=== PATIENT | female | born 1985 | race Caucasian/White ===

== ENCOUNTER → 2017-12-30 | Outpatient (CLI) | payer OTHER ==
[~2017-12-30] MED LIST: ASPI1TAB17 PO; CIPR-17 PO; HYDR-91 PO; IBUP800T26 PO; INSU100V6 SQ; MTF500T PO; PHEN100T26 PO; PRM25T PO
--- NOTE | 2017-12-30 17:15 | Diagnostic Imaging Report ---
INDICATION: Secondary amenorrhea. EXAMINATION: Pelvic ultrasound. FINDINGS: The previous pelvic ultrasound exam performed on 09/03/2015 failed to show any sign of an acute pelvic abnormality. The endometrium measured 3 mm at that time. On this exam, endometrium measures only 1 mm. This finding is nonspecific, however. The uterus, itself, is nongravid and not enlarged, measuring 5.2 x 4.0 x 3.4 cm. There is still no focal mass involving the uterus to suggest a fibroid. Both ovaries were identified. There is good blood flow to each ovary and there is no sign of torsion. Each ovary contains a few subcentimeter follicles. There is no solid pelvic mass or free fluid collection noted. IMPRESSION: 1. There is no evidence for an acute pelvic abnormality. 2. The endometrial lining is thinned but this finding is nonspecific. Dictated by: Dictated on workstation # [id number]
== END ==
LOC: RAD 12:50
PROVIDERS: ATTEND Obstetrics & Gynecology
DX: N91.1 Secondary amenorrhea (principal)
CPT/HCPCS: 76830; 76856

== ENCOUNTER → 2018-01-18 | Outpatient (CLI) | payer OTHER ==
[~2018-01-18] MED LIST changes: +GADOBUTROL 15 MMOL/15 ML (GADAVIST) VIAL IV ONE
[2018-01-18 17:53] LABS: ALANINE AMINOTRANSFERASE 77 U/L (0-55); ALBUMIN 4.5 GM/DL (3.2-4.5); ALKALINE PHOSPHATASE 97 U/L (40-136); BILIRUBIN,TOTAL 1.3 MG/DL (0.1-1.0); BUN/CREATININE RATIO 16; CALCIUM 10.6 MG/DL (8.5-10.1); CARBON DIOXIDE 27 MMOL/L (21-32); CHLORIDE 99 MMOL/L (98-107); CREATININE SERUM 0.89 MG/DL (0.60-1.30); GFR ESTIMATED > 60; GLUCOSE 247 MG/DL (70-105); POTASSIUM 4.4 MMOL/L (3.6-5.0); SODIUM 136 MMOL/L (135-145); TOTAL PROTEIN 8.5 GM/DL (6.4-8.2)
--- NOTE | 2018-01-18 18:43 | Diagnostic Imaging Report ---
PROCEDURE: MR brain and sella with and without contrast. TECHNIQUE: Multiplanar, multisequence MR imaging of the brain was performed with and without contrast. Dedicated dynamic imaging of the sella was performed. INDICATION: Amenorrhea. COMPARISON: None. FINDINGS: The ventricles and sulci are within normal limits. The normal expected flow-voids within the carotid siphons are seen. No diffusion restriction is identified. No acute intra-axial or extra-axial hemorrhage is identified. The corpus callosum is unremarkable. No abnormal enhancement following contrast administration is seen. Thin slice dynamic imaging through the sella turcica was performed. The infundibulum is midline. The pituitary gland appears to be normal in size. No hypointense mass within the pituitary is seen to suggest pituitary microadenoma. IMPRESSION: Unremarkable MRI of the brain and pituitary gland. Dictated by: Dictated on workstation # [id number]
== END ==
LOC: RAD 17:09
PROVIDERS: ATTEND Obstetrics & Gynecology
DX: E23.0 Hypopituitarism (principal); E11.9 Type 2 diabetes mellitus without complications; N91.2 Amenorrhea, unspecified
CPT/HCPCS: 36415; 70553; 80053

== ENCOUNTER 2019-07-29 12:50 | Emergency (ER) | payer BC, OTHER ==
[~2019-07-29] VITALS: Ht 182.8 cm; Wt 109.1 kg
[~2019-07-29 12:50] MED LIST changes: -GADOBUTROL 15 MMOL/15 ML (GADAVIST) VIAL IV ONE
[2019-07-29] MEDS ORDERED: AUGMENTIN 875 MG TAB (AMOXICILLIN/CLAVULANATE) PO STA (13:11)
[2019-07-29] MEDS ORDERED: TETANUS & DIPHTHERIA TOX,ADULT 0.5 ML (TENIVAC) IM ONE (13:15)
--- NOTE | 2019-07-29 13:18 | ED General ---
General Stated Complaint: DOG BITE - R LEG Source of Information: Patient Exam Limitations: No Limitations History of Present Illness Date Seen by Provider: July 29, 2019 Time Seen by Provider: 13:06 Initial Comments Here with report of dogbite to the right posterior upper leg in the area of the mid thigh. This was not her dog. She knows where the dog lives and police were contacted. They are evaluating if the dog has rabies vaccination. She is unsure of her tetanus status. Has puncture wound and abrasions as well as bruising to the area of concern. Denies other injuries or concerns. She was [place] the [address] on [facility] [employer] [facility] when the dog started chasing her. She started running and the dog bit her in the posterior leg on the right. Timing/Duration: 1 Hour Severity: Mild Associated Systoms: No Fever/Chills, No Weakness Allergies and Home Medications Allergies Coded Allergies: No Known Drug Allergies (Unverified , 04/28/10) Home Medications Amoxicillin/Potassium Clav 1 Each Tablet, 1 EACH PO BID Prescribed by: CJ QUEEN on 07/29/19 1320 Ibuprofen 800 Mg Tablet, 800 MG PO q8h PRN for PAIN Prescribed by: BARBARA GRAY on 11/02/13 0611 Insulin Glargine,Hum.rec.anlog 100 Unit/1 Ml Vial, 20 UNITS SQ HS Prescribed by: FARHAD MTZ on 03/02/13 1526 Metformin Hcl 500 Mg Tablet, 500 MG PO BID@07,17 Prescribed by: FARHAD MTZ on 03/02/13 1526 Promethazine Hcl 25 Mg Tab, 1 TAB PO QID PRN for NAUSEA/VOMITING Prescribed by: BARBARA GRAY on 11/02/13 0611 Patient Home Medication List Home Medication List Reviewed: Yes Review of Systems Review of Systems Constitutional: see HPI; No chills, No fever Respiratory: no symptoms reported Cardiovascular: no symptoms reported Musculoskeletal: No joint pain; muscle pain Skin: see HPI, change in color, lesions Psychiatric/Neurological: No Symptoms Reported Past Ampjska-Slpkrq-Uhugva Hx Past Med/Social Hx: Reviewed Nursing Past Med/Soc Hx Patient Social History Alcohol Use: Occasionally Uses Recreational Drug Use: No Smoking Status: Never a Smoker Recent Foreign Travel: No Contact w/Someone Who Travel: No Immunizations Up To Date Date of Pneumonia Vaccine: Mar 02, 2013 Date of Influenza Vaccine: Mar 02, 2013 Past Medical History Surgeries: No Respiratory: No Cardiac: No Neurological: Yes Headaches /Migraines Reproductive Disorders: No Sexually Transmitted Disease: No Gastrointestinal: No Musculoskeletal: No Endocrine: Yes Diabetes, Insulin dep Family Medical History Reviewed Nursing Family Hx Family history: Diabetes mellitus 03 FATHER 03 MOTHER 09 BROTHER 09 BROTHER 09 SISTER No Family History of: Abdominal aortic aneurysm Evans's disease Alcoholism Aphasia Cancer Cancer of colon Cataract Chest pain Congenital heart disease Congestive heart failure Cystic fibrosis Dementia Dysphagia Family history: Allergy Family history: Alzheimer's disease Family history: Arthritis Family history: Asthma Family history: Breast disease Family history: Cardiovascular disease Family history: Coronary thrombosis Family history: Gastrointestinal disease Family history: Glaucoma Family history: Hypertension Family history: Osteoporosis Family history: Thyroid disorder Headache Hearing loss Heart disease Hereditary disease History of - anemia History of - disorder History of - respiratory disease History of drug abuse Human immunodeficiency virus (HIV) seropositivity Hypercholesterolemia Infertile Kidney disease Malignant neoplasm of lung Myocardial infarction Parkinson's disease Prostate cancer Psychotic disorder Seizure disorder Stroke Tuberculosis Visual impairment Physical Exam Vital Signs Vital Signs - First Documented 07/29/19 13:05 Temp 36.7 Pulse 76 Resp 16 B/P (MAP) 141/95 (110) O2 Delivery Room Air Capillary Refill : Height, Weight, BMI Height: 5'11" Weight: 260lbs. oz. 117.420646we; BMI Method:Stated General Appearance: No Apparent Distress, WD/WN Respiratory: Lungs Clear, Normal Breath Sounds Cardiovascular: Regular Rate, Rhythm, No Murmur Extremity: Normal Range of Motion, Other (lateral posterior aspect of right middle thigh with 2) approximately areas of abrasion and bruising that encompass overall 10 x 10 cm area. Puncture wound is one half by 1.5 cm and is in the posterior superior aspect. Bleeding controlled.) Neurologic/Psychiatric: Alert, Oriented x3 Skin: Warm/Dry, Erythema, Other (see lesion description above) Progress/Results/Core Measures Suspected Sepsis SIRS Temperature: Pulse: Respiratory Rate: Blood Pressure / Mean: Results/Orders My Orders Orders - CJ QUEEN MD Amoxicillin/Clavulanate Tablet (Augmenti (07/29/19 13:11) Tetanus/Diphtheria Inj (Adult) (Tenivac (07/29/19 13:15) Medications Given in ED Current Medications Medications Dose Ordered Sig/Nadja Route Start Time Stop Time Status Last Admin Dose Admin Tetanus/ Diphtheria Toxoids 0.5 ml ONCE ONCE IM 07/29/19 13:15 07/29/19 13:16 DC 07/29/19 13:32 0.5 ML Vital Signs/I&O 07/29/19 13:05 Temp 36.7 Pulse 76 Resp 16 B/P (MAP) 141/95 (110) O2 Delivery Room Air Capillary Refill : Progress Note : Progress Note Seen and evaluated. Tetanus updated. Augmentin 875 mg by mouth ordered. We are evaluating for rabies vaccination status of dog. Law enforcement have been contacted. Wound cleaned and dressed by nursing with antibiotic and bandage. 1351: We have made contact with [facility]. They have found the dog. Rabies vaccine was outdated as of January 19, 2019. They are able to monitor the dog daily for the next 10 days and it is otherwise healthy c urrently. We will forego prophylaxis at this point per current guidelines and only initiate if animal shows signs of rabies. This was discussed with the patient. Discharged home with return precautions. Patient verbalize understanding of instructions and agreement with plan. Departure Impression Primary Impression: Dog bite of thigh Qualified Codes: S71.151A - Open bite, right thigh, initial encounter; W54.0XXA - Bitten by dog, initial encounter Disposition: 01 HOME, SELF-CARE Condition: Stable Departure-Patient Inst. Decision time for Depature: 13:18 Referrals: [facility] (PCP/Family) Primary Care Physician Patient Instructions: Animal Bites (DC) Add. Discharge Instructions: Take medication as prescribed. Use antibiotic ointment and dressing over wound changing once or twice daily over the next few days and then as needed. You may use ice packs over area of bruises to decrease swelling and pain. Follow-up with your Dr. in a few days for recheck. Return for worse pain, swelling, red streaks up the leg, foul-smelling drainage or other concerns as needed. You may take ibuprofen 600 mg every 8 hours as needed for pain. You may also take Tylenol/a cetaminophen 1000 mg every 8 hours as needed for pain. Scripts Amoxicillin/Potassium Clav (Augmentin 875-125 Tablet) 1 Each Tablet 1 EACH PO BID, #13 TAB 0 Refills Prov: CJ QUEEN MD 07/29/19 CJ QUEEN MD July 29, 2019 13:18
[2019-07-29] MEDS ORDERED: AMOX-358 PO (13:20)
--- NOTE | 2019-07-29 13:42 | NUR ---
[place] PD called at this time RE status of dog. They are not aware of any reports of a dog bite that they are investigating, but did have a report of a loose dog at [facility]. He will call back if that dog matches description of dog that bit the pt.
[2019-07-29 14:09] VITALS: BP 141/95
== END 2019-07-29 14:09 | disposition home or self-care (01) ==
LOC: EDUNIT# 12:50 → ER 12:51
DX: S71.151A Open bite, right thigh, initial encounter (principal); E11.9 Type 2 diabetes mellitus without complications; G43.909 Migraine, unspecified, not intractable, without status migrainosus; Z79.4 Long term (current) use of insulin; Z23 Encounter for immunization; W54.0XXA Bitten by dog, initial encounter
CPT/HCPCS: 90714

== ENCOUNTER 2020-09-13 16:10 | Emergency (ER) | payer BC ==
[~2020-09-13] VITALS: Ht 185 cm; Wt 117.0 kg
[~2020-09-13 16:10] MED LIST changes: +AMOX-358 PO
[2020-09-13] MEDS ORDERED: diphenhydrAMINE 50 MG/ML INJ (BENADRYL) IM ONE (17:00)
[2020-09-13] MEDS ORDERED: PROCHLORPERAZINE 10 MG/2ML INJ (COMPAZINE) IM ONE (17:00)
[2020-09-13] MEDS ORDERED: KETOROLAC 60 MG/2 ML VIAL IM ONE (17:00)
--- NOTE | 2020-09-13 17:32 | ED Headache ---
General Chief Complaint: Head/Cervical Problems Stated Complaint: MIGRAINE Nursing Triage Note: MIGRAINE SINCE WEDNESDAY. WOKE UP THIS AM WITHOUT A MIGRAINE BUT IT STARTED AGAIN WHILE SHE WAS AT WORK. DENIES TAKING ANY MEDS FOR IT TODAY. Nursing Sepsis Screen: No Definite Risk Source: patient Exam Limitations: no limitations (EMILY GARCIA APRN) History of Present Illness Date Seen by Provider: Sep 13, 2020 Time Seen by Provider: 16:20 Initial Comments To ER with a migraine since Wednesday. She has a long history of migraines and this is similar. This is bitemporal, frontal and midline posterior. This is typical of her previous migraines. It went away for a brief while but then came back earlier today. She has associated nausea and photophobia. She has not taken anything for it. Timing/Duration: other (72 hours) Severity/Quality: moderate, constant Location: temporal Prior Headaches/Recent Trauma: occasional headaches Modifying Factors: worse with exposure to light Associated Symptoms: nausea/vomiting (EMILY GARCIA APRN) Allergies and Home Medications Allergies Coded Allergies: No Known Drug Allergies (Unverified , 04/28/10) Home Medications Amoxicillin/Potassium Clav 1 Each Tablet, 1 EACH PO BID Prescribed by: CJ QUEEN on 07/29/19 1320 Ibuprofen 800 Mg Tablet, 800 MG PO q8h PRN for PAIN Prescribed by: BARBARA GRAY on 11/02/13 0611 Insulin Glargine,Hum.rec.anlog 100 Unit/1 Ml Vial, 20 UNITS SQ HS Prescribed by: FARHAD MTZ on 03/02/13 1526 Metformin Hcl 500 Mg Tablet, 500 MG PO BID@,17 Prescribed by: FARHAD MTZ on 03/02/13 1526 Promethazine Hcl 25 Mg Tab, 1 TAB PO QID PRN for NAUSEA/VOMITING Prescribed by: BARBARA GRAY on 11/02/13 0611 Patient Home Medication List Home Medication List Reviewed: Yes (EMILY GARCIA APRN) Review of Systems Review of Systems Constitutional: see HPI Eyes: No Symptoms Reported Ears, Nose, Mouth, Throat: no symptoms reported Respiratory: no symptoms reported Cardiovascular: no symptoms reported Genitourinary: no symptoms reported Musculoskeletal: no symptoms reported Skin: no symptoms reported Psychiatric/Neurological: No Symptoms Reported, Headache (EMILY GARCIA APRN) Past Ktrovzd-Cipulb-Englns Hx Patient Social History Alcohol Use: Occasionally Uses Smoking Status: Never a Smoker Recent Infectious Disease Expo: No (EMILY GARCIA APRN) Immunizations Up To Date Date of Pneumonia Vaccine: Mar 02, 2013 Date of Influenza Vaccine: Mar 02, 2013 (EMILY GARCIA APRN) Past Medical History Surgeries: No Respiratory: No Cardiac: No Neurological: Yes Headaches /Migraines Reproductive Disorders: No Sexually Transmitted Disease: No Gastrointestinal: No Musculoskeletal: No Endocrine: Yes Diabetes, Insulin dep Cancer: No Psychosocial: No Integumentary: No Blood Disorders: No (EMILY GARCIA APRN) Family Medical History Family history: Diabetes mellitus 03 FATHER 03 MOTHER 09 BROTHER 09 BROTHER 09 SISTER No Family History of: Abdominal aortic aneurysm Evans's disease Alcoholism Aphasia Cancer Cancer of colon Cataract Chest pain Congenital heart disease Congestive heart failure Cystic fibrosis Dementia Dysphagia Family history: Allergy Family history: Alzheimer's disease Family history: Arthritis Family history: Asthma Family history: Breast disease Family history: Cardiovascular disease Family history: Coronary thrombosis Family history: Gastrointestinal disease Family history: Glaucoma Family history: Hypertension Family history: Osteoporosis Family history: Thyroid disorder Headache Hearing loss Heart disease Hereditary disease History of - anemia History of - disorder History of - respiratory disease History of drug abuse Human immunodeficiency virus (HIV) seropositivity Hypercholesterolemia Infertile Kidney disease Malignant neoplasm of lung Myocardial infarction Parkinson's disease Prostate cancer Psychotic disorder Seizure disorder Stroke Tuberculosis Visual impairment Physical Exam Vital Signs Vital Signs - First Documented 09/13/20 16:20 Temp 36.0 Pulse 90 Resp 16 B/P (MAP) 125/82 (96) Pulse Ox 95 O2 Delivery Room Air (BARBARA MENDIOLA MD) Vital Signs Capillary Refill : Less Than 3 Seconds (EMILY GARCIA APRN) Height, Weight, BMI Height: 5'11" Weight: 260lbs. oz. 117.745684fo; 34.00 BMI Method:Stated General Appearance: WD/WN, no apparent distress HEENT: PERRL/EOMI, normal ENT inspection Neck: non-tender, full range of motion Respiratory: normal breath sounds, no respiratory distress, no accessory muscle use Gastrointestinal: normal bowel sounds, non tender Extremities: normal range of motion, non-tender Psychiatric: alert, oriented x 3 Crainal Nerves: normal hearing, normal speech, PERRL Skin: normal color, warm/dry (EMILY GARCIA APRN) Progress/Results/Core Measures Results/Orders Vital Signs/I&O 09/13/20 09/13/20 16:20 17:54 Temp 36.0 36.0 Pulse 90 99 Resp 16 16 B/P (MAP) 125/82 (96) 122/71 (96) Pulse Ox 95 97 O2 Delivery Room Air Room Air (BARBARA MENDIOLA MD) Blood Pressure Mean: 96 Departure Impression Primary Impression: Headache Disposition: 01 HOME, SELF-CARE Condition: Stable Departure-Patient Inst. Decision time for Depature: 17:36 (EMILY GARCIA APRN) Referrals: [facility] (PCP/Family) Primary Care Physician Patient Instructions: Headache, Adult (DC) ATTENDING PHYSICIAN NOTE: I was physically present as attending physician in the emergency department during the care of this patient, but I was not directly involved in the decision making or delivery of care for this patient. (BARBARA MENDIOLA MD) EMIYL GARCIA APRN Sep 13, 2020 17:32 BARBARA MENDIOLA MD Sep 14, 2020 06:38
[2020-09-13 17:54] VITALS: BP 122/71
== END 2020-09-13 17:54 | disposition home or self-care (01) ==
LOC: EDUNIT# 16:10 → ER 16:12
DX: R51.9 Headache, unspecified (principal); E11.9 Type 2 diabetes mellitus without complications
CPT/HCPCS: 99284

== ENCOUNTER 2021-02-11 09:05 | Emergency (ER) | payer BC ==
[2021-02-11 09:13] VITALS: BP 146/103
--- NOTE | 2021-02-11 09:36 | ED Neurological Problem ---
General Chief Complaint: Neurological Problems Stated Complaint: LEFT SIDE IS NUMB Source: patient Exam Limitations: no limitations History of Present Illness Date Seen by Provider: Feb 11, 2021 Time Seen by Provider: 09:12 Initial Comments This 36-year-old young lady presents to the emergency room with complaints of left facial numbness and weakness. She noticed symptoms yesterday that included some minor eye irritation and inability to close her eye fully. Today she woke with the more profound paralysis and numbness. On exam she has rather severe facial droop on the left and inability to close her left eye. 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 She reports having canker sores on her left upper lip about a week ago but does not recall any other acute illness. Symptoms extend to the upper neck and forehead but not beyond. Allergies and Home Medications Allergies Coded Allergies: No Known Drug Allergies (Unverified , 04/28/10) Patient Home Medication List Home Medication List Reviewed: Yes Amoxicillin/Potassium Clav (Augmentin 875-125 Tablet) 1 Each Tablet, 1 EACH PO BID Prescribed by: CJ QUEEN on 07/29/19 1320 Ibuprofen (Ibuprofen) 800 Mg Tablet, 800 MG PO q8h PRN for PAIN Prescribed by: BARBARA GRAY on 11/02/13 0611 Insulin Glargine,Hum.rec.anlog (Lantus 10 Ml Vial) 100 Unit/1 Ml Vial, 20 UNITS SQ HS Prescribed by: FARHAD MTZ on 03/02/13 1526 Metformin Hcl (Metformin 500 Mg) 500 Mg Tablet, 500 MG PO BID@07,17 Prescribed by: FARHAD MTZ on 03/02/13 1526 Prednisone (Prednisone) 20 Mg Tab, 6 MG PO DAILY Prescribed by: BARBARA GRAY on 02/11/21 0937 Promethazine Hcl (Phenergan Tab) 25 Mg Tab, 1 TAB PO QID PRN for NAUSEA/VOMITING Prescribed by: BARBARA GRAY on 11/02/13 0611 Valacyclovir HCl (Valacyclovir) 1,000 Mg Tablet, 1,000 MG PO TID Prescribed by: BARBARA GRAY on 02/11/21 0937 Review of Systems Review of Systems Constitutional: no symptoms reported Eyes: No Symptoms Reported Ears, Nose, Mouth, Throat: no symptoms reported Respiratory: no symptoms reported Cardiovascular: no symptoms reported Gastrointestinal: no symptoms reported Genitourinary: no symptoms reported Musculoskeletal: no symptoms reported Skin: no symptoms reported Psychiatric/Neurological: See HPI Endocrine: No Symptoms Reported Hematologic/Lymphatic: No Symptoms Reported Past Cmfhgof-Gydqyr-Bpjmqf Hx Patient Social History Tobacco Use?: No Use of E-Cig and/or Vaping dev: No Substance use?: No Alcohol Use?: Yes Alcohol Frequency: Once in a while Past Medical History Surgeries: No Respiratory: No Cardiac: No Neurological: Yes Headaches /Migraines Reproductive Disorders: No Sexually Transmitted Disease: No Gastrointestinal: No Musculoskeletal: No Endocrine: Yes Diabetes, Insulin dep Cancer: No Psychosocial: No Integumentary: No Blood Disorders: No Family Medical History Family history: Diabetes mellitus 03 FATHER 03 MOTHER 09 BROTHER 09 BROTHER 09 SISTER No Family History of: Abdominal aortic aneurysm Evans's disease Alcoholism Aphasia Cancer Cancer of colon Cataract Chest pain Congenital heart disease Congestive heart failure Cystic fibrosis Dementia Dysphagia Family history: Allergy Family history: Alzheimer's disease Family history: Arthritis Family history: Asthma Family history: Breast disease Family history: Cardiovascular disease Family history: Coronary thrombosis Family history: Gastrointestinal disease Family history: Glaucoma Family history: Hypertension Family history: Osteoporosis Family history: Thyroid disorder Headache Hearing loss Heart disease Hereditary disease History of - anemia History of - disorder History of - respiratory disease History of drug abuse Human immunodeficiency virus (HIV) seropositivity Hypercholesterolemia Infertile Kidney disease Malignant neoplasm of lung Myocardial infarction Parkinson's disease Prostate cancer Psychotic disorder Seizure disorder Stroke Tuberculosis Visual impairment Physical Exam Vital Signs Vital Signs - First Documented 02/11/21 09:13 Temp 36.7 Pulse 84 Resp 18 B/P (MAP) 146/103 (117) Pulse Ox 97 O2 Delivery Room Air Capillary Refill : Height, Weight, BMI Height: 5'11" Weight: 260lbs. oz. 117.677194ac; 34.00 BMI Method:Stated General Appearance: WD/WN, no apparent distress HEENT: PERRL/EOMI, TMs normal, pharynx normal, other (Left-sided facial droop, inability to close left eye, left facial numbness) Neck: normal inspection Respiratory: lungs clear, normal breath sounds, no respiratory distress Cardiovascular: regular rate, rhythm, no edema, no murmur Gastrointestinal: non tender, soft Extremities: normal inspection, no pedal edema Neurologic/Psychiatric: no motor/sensory deficits, alert, normal mood/affect, oriented x 3 Crainal Nerves: normal hearing, normal speech, PERRL, facial asymmetry, facial droop (Left), other (Decreased sensation of left face, inability to close the left eye, left forehead paralysis) Coordination/Gait: normal finger to nose (Normal [id number]-qedj), normal gait Progress/Results/Core Measures Results/Orders Vital Signs/I&O 02/11/21 09:13 Temp 36.7 Pulse 84 Resp 18 B/P (MAP) 146/103 (117) Pulse Ox 97 O2 Delivery Room Air Progress Progress Note : Progress Note 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 She is being started on high-dose steroids and valacyclovir. She does feel comfortable performing sliding scale insulin adjustments for hyperglycemia should she experience that with steroid use. We reviewed these instructions. See discharge instructions for further discussion. Departure Impression Primary Impression: Mondragon's palsy Disposition: 01 HOME, SELF-CARE Condition: Stable Departure-Patient Inst. Decision time for Depature: 09:30 Referrals: [facility] (PCP/Family) Primary Care Physician Patient Instructions: Mondragon's Palsy Add. Discharge Instructions: Start your medications immediately. You are being prescribed high-dose prednisone (steroids). This may cause sign ificant elevation in your blood sugars. I recommend that you check your blood sugars fasting in the morning and 2 hours after each meal. Use the following sliding scale to give your self correction doses when you check your blood sugar. Blood sugar 200-250, give additional 6 units of fast acting insulin Blood sugar 251-300, give additional 8 units of fast acting insulin Blood sugar 301-350, give additional 10 units of fast acting insulin Blood sugar 351-400, give additional 2 units of fast acting insulin Blood sugar greater than 400, call your doctor. Complete the entire course of your medications as prescribed. Call your doctors office today to schedule a follow-up appointment for sometime within the next week. Eat and drink very carefully because of the paralysis of the left side of your mouth. Be particularly careful of hot foods or liquids and chewing. It is very important to protect your eye since you cannot blink properly at this time. When outside you should be very careful of windy, domingo and o[place]ia conditions. It may be helpful to get a wraparound pair of sunglasses that can go over your regular glasses. Wearing a hat to protect your eyes from sun may also be helpful. It is also very important to moisturize your eye. You should use artificial te ars at least every 15 to 30 minutes. You may use a nighttime preparation that is more viscous to use before bed. As long as you are unable to close your eye, you should also tape your eye shut at night. Call with questions or concerns. Return to the ER if you have any worsening of symptoms. All discharge instructions reviewed with patient and/or family. Voiced understanding. Scripts Valacyclovir HCl (Valacyclovir) 1,000 Mg Tablet 1000 MG PO TID, #21 TAB Prov: BARBARA MENDIOLA MD 02/11/21 Prednisone (Prednisone) 20 Mg Tab 6 MG PO DAILY, #21 TAB 0 Refills Prov: BARBARA MENDIOLA MD 02/11/21 Copy Copies To 1: OK SUTTON JOSHUA T MD Feb 11, 2021 09:36
[2021-02-11] MEDS ORDERED: VALA10007 PO (09:37)
[2021-02-11] MEDS ORDERED: PRD20T PO (09:37)
== END 2021-02-11 09:50 | disposition home or self-care (01) ==
LOC: EDUNIT# 09:05 → ER 09:09
DX: G51.0 Bell's palsy (principal); E11.9 Type 2 diabetes mellitus without complications; Z79.4 Long term (current) use of insulin
CPT/HCPCS: 99281

== ENCOUNTER 2022-07-22 09:11 | Emergency (ER) | payer OTHER ==
[~2022-07-22] VITALS: Ht 182 cm; Wt 117.0 kg
[~2022-07-22 09:11] MED LIST changes: +PRD20T PO; +VALA10007 PO
--- NOTE | 2022-07-22 11:08 | ED Lower Extremity ---
General Stated Complaint: LT ANKLE/LEG PAIN Source: patient Exam Limitations: no limitations (NGHIA GAINES) History of Present Illness Date Seen by Provider: July 22, 2022 Time Seen by Provider: 11:06 Initial Comments Patient is a 37-year-old female who presents ED with left leg pain. Leg pain over the past 2 weeks. Started in the heels. Pain is described as dull and achy. Yesterday started having radiating pain up into the left hip. She noted some engorgement of her superficial veins in her left leg. She denies of any bruising or, redness or trauma. States pain is seems to be worse when she starts walking. She does get some relief after longer period of walking. She denies of any cool extremity. Has been taken Tylenol and ibuprofen without much improvement. No history of DVT, recent travels or surgeries. She does have a history of type 2 diabetes currently on insulin. She states her last A1c 2 weeks ago was 9. She denies fever, chest pain, cough, shortness of breath, headache or dizziness. (NGHIA GAINES) Allergies and Home Medications Allergies Coded Allergies: No Known Drug Allergies (Unverified , 04/28/10) Patient Home Medication List Home Medication List Reviewed: Yes (NGHIA GAINES) Amoxicillin/Potassium Clav (Augmentin 875-125 Tablet) 1 Each Tablet, 1 EACH PO BID Prescribed by: CJ QUEEN on 07/29/19 1320 Hydrocodone/Acetaminophen (Hydrocodone-Acetamin 5-325 mg) 5 Mg-325 Mg Tablet, 1 TAB PO Q4H PRN for PAIN-MODERATE (5-7) Prescribed by: ARUN LANIER on 07/22/22 1238 Ibuprofen (Ibuprofen) 800 Mg Tablet, 800 MG PO q8h PRN for PAIN Prescribed by: BARBARA GRAY on 11/02/13 0611 Insulin Glargine,Hum.rec.anlog (Lantus 10 Ml Vial) 100 Unit/1 Ml Vial, 20 UNITS SQ HS Prescribed by: FARHAD MTZ on 03/02/13 1526 Metformin Hcl (Metformin 500 Mg) 500 Mg Tablet, 500 MG PO BID@07,17 Prescribed by: FARHAD MTZ on 03/02/13 1526 Prednisone (Prednisone) 20 Mg Tab, 6 MG PO DAILY Prescribed by: BARBARA GRAY on 02/11/21 0937 Promethazine Hcl (Phenergan Tab) 25 Mg Tab, 1 TAB PO QID PRN for NAUSEA/VOMITING Prescribed by: BARBARA GRAY on 11/02/13 0611 Valacyclovir HCl (Valacyclovir) 1,000 Mg Tablet, 1,000 MG PO TID Prescribed by: BARBARA GRAY on 02/11/21 0937 Review of Systems Constitutional: No chills, No diaphoresis, No malaise, No weakness EENTM: No blurred vision, No double vision Respiratory: No cough, No dyspnea on exertion, No short of breath, No wheezing Cardiovascular: No chest pain; edema Gastrointestinal: No abdominal pain, No diarrhea, No nausea, No vomiting Genitourinary: No decreased output, No discharge Musculoskeletal: muscle pain, muscle stiffness Skin: No change in color, No change in hair/nails (NGHIA GAINES) All Other Systems Reviewed Negative Unless Noted: Yes (NGHIA GAINES) Past Wncjrmk-Gsugln-Wpfyvq Hx Past Medical History Surgeries: No Respiratory: No Cardiac: No Neurological: Yes Headaches /Migraines Reproductive Disorders: No Sexually Transmitted Disease: No Gastrointestinal: No Musculoskeletal: No Endocrine: Yes Diabetes, Insulin dep Cancer: No Psychosocial: No Integumentary: No Blood Disorders: No (NGHIA GAINES) Family Medical History Family history: Diabetes mellitus 03 FATHER 03 MOTHER 09 BROTHER 09 BROTHER 09 SISTER No Family History of: Abdominal aortic aneurysm Evans's disease Alcoholism Aphasia Cancer Cancer of colon Cataract Chest pain Congenital heart disease Congestive heart failure Cystic fibrosis Dementia Dysphagia Family history: Allergy Family history: Alzheimer's disease Family history: Arthritis Family history: Asthma Family history: Breast disease Family history: Cardiovascular disease Family history: Coronary thrombosis Family history: Gastrointestinal disease Family history: Glaucoma Family history: Hypertension Family history: Osteoporosis Family history: Thyroid disorder Headache Hearing loss Heart disease Hereditary disease History of - anemia History of - disorder History of - respiratory disease History of drug abuse Human immunodeficiency virus (HIV) seropositivity Hypercholesterolemia Infertile Kidney disease Malignant neoplasm of lung Myocardial infarction Parkinson's disease Prostate cancer Psychotic disorder Seizure disorder Stroke Tuberculosis Visual impairment Physical Exam Vital Signs Vital Signs - First Documented 07/22/22 09:30 Temp 36.3 Pulse 87 Resp 16 B/P (MAP) 121/86 (98) Pulse Ox 97 O2 Delivery Room Air (BARBARA MENDIOLA MD) Vital Signs Capillary Refill : (NGHIA GAINES) Height, Weight, BMI Height: 5'11" Weight: 260lbs. oz. 117.912390rn; 34.00 BMI Method:Stated General Appearance: WD/WN, no apparent distress HEENT: PERRL/EOMI, normal ENT inspection, TMs normal, pharynx normal Neck: non-tender, full range of motion, supple, normal inspection Cardiovascular: regular rate, rhythm, no edema, no gallop, no JVD, no murmur Respiratory: chest non-tender, lungs clear, normal breath sounds, no respiratory distress, no accessory muscle use Gastrointestinal: normal bowel sounds, non tender, soft, no organomegaly Back: normal inspection, no CVA tenderness, no vertebral tenderness Hips: bilateral hip non-tender, bilateral hip normal inspection, bilateral hip normal range of motion Legs: left leg swelling (Swelling noted to left calf, left foot.), left leg other (Varicose veins left leg. No erythema. Tender to palpate left calf, left lateral ankle. +2 dorsalis pedis. +2 posterior tibialis) Knees: bilateral knee non-tender, bilateral knee normal range of motion Ankles: bilateral ankle normal inspection, bilateral ankle normal range of motion Feet: bilateral foot non-tender, bilateral foot normal range of motion (NGHIA GAINES) Progress/Results/Core Measures Results/Orders Lab Results Laboratory Tests Test 07/22/22 11:30 Range/Units White Blood Count 7.0 4.3-11.0 10^3/uL Red Blood Count 4.84 3.80-5.11 10^6/uL Hemoglobin 14.4 11.5-16.0 g/dL Hematocrit 43 35-52 % Mean Corpuscular Volume 88 80-99 fL Mean Corpuscular Hemoglobin 30 25-34 pg Mean Corpuscular Hemoglobin Concent 34 32-36 g/dL Red Cell Distribution Width 12.9 10.0-14.5 % Platelet Count 260 130-400 10^3/uL Mean Platelet Volume 10.4 9.0-12.2 fL Immature Granulocyte % (Auto) 0 % Neutrophils (%) (Auto) 57 42-75 % Lymphocytes (%) (Auto) 32 12-44 % Monocytes (%) (Auto) 10 0-12 % Eosinophils (%) (Auto) 1 0-10 % Basophils (%) (Auto) 0 0-10 % Neutrophils # (Auto) 4.0 1.8-7.8 10^3/uL Lymphocytes # (Auto) 2.2 1.0-4.0 10^3/uL Monocytes # (Auto) 0.7 0.0-1.0 10^3/uL Eosinophils # (Auto) 0.1 0.0-0.3 10^3/uL Basophils # (Auto) 0.0 0.0-0.1 10^3/uL Immature Granulocyte # (Auto) 0.0 0.0-0.1 10^3/uL Sodium Level 137 135-145 MMOL/L Potassium Level 4.0 3.6-5.0 MMOL/L Chloride Level 104 98-107 MMOL/L Carbon Dioxide Level 21 21-32 MMOL/L Anion Gap 12 5-14 MMOL/L Blood Urea Nitrogen 17 7-18 MG/DL Creatinine 0.83 0.60-1.30 MG/DL Estimat Glomerular Filtration Rate 92 BUN/Creatinine Ratio 20 Glucose Level 200 H 70-105 MG/DL Calcium Level 9.4 8.5-10.1 MG/DL Corrected Calcium 9.2 8.5-10.1 MG/DL Total Bilirubin 1.1 H 0.1-1.0 MG/DL Aspartate Amino Transf (AST/SGOT) 65 H 5-34 U/L Alanine Aminotransferase (ALT/SGPT) 65 H 0-55 U/L Alkaline Phosphatase 74 40-136 U/L Total Protein 8.5 H 6.4-8.2 GM/DL Albumin 4.2 3.2-4.5 GM/DL (BARBARA MENDIOLA MD) Vital Signs/I&O 07/22/22 07/22/22 09:30 13:25 Temp 36.3 Pulse 87 82 Resp 16 16 B/P (MAP) 121/86 (98) 118/76 Pulse Ox 97 98 O2 Delivery Room Air Room Air (BARBARA MENDIOLA MD) Departure Communication (PCP) Patient states she has been having pain in her heel for the past few weeks. She is concerned for this secondary pain that started few days ago radiating to the left hip. She noted engorgement of her left lower leg veins. SHe does have varicose veins she is scheduled to follow-up with a psych social worker on 30 July. She states the pain in her heel does get better throughout the day. Suspect possible plantar fasciitis versus calcaneal spur resulting in her pain. However due to the enlargement of the superficial veins, swelling of the left leg ultrasound was ordered to rule out DVT. Ultrasound was negative for DVT. No evidence of suggesting cellulitis. No hip pain or tenderness on palpation to suggest trochanteric bursitis. No lumbar back tenderness suggesting degenerative disc disease, muscular pain.. No radiating pain from the back to the left lower leg suggesting sciatica. No fever, chills, body aches. Denies of any trauma. Concern for venous insufficiency. Discussed elevating feet at night, wearing compression socks. We will provide a few days worth of pain medication. If no continue improvement recommend follow-up your primary care physician for further evaluation. She has no right leg pain. No chest pain, cough, shortness of breath or fever. If any worsening symptoms return back to ED (NGHIA GAINES) Impression Primary Impression: Left leg pain Additional Impression: Venous insufficiency Disposition: 01 HOME, SELF-CARE Condition: Stable Departure-Patient Inst. Decision time for Depature: 12:37 (NGHIA GAINES) Referrals: [facility] (PCP/Family) Primary Care Physician Patient Instructions: Varicose Veins and Other Vein Disease in the Legs Add. Discharge Instructions: Recommend wearing compression socks. Elevate feet at night. Pain medication as needed. Recommend follow-up your primary care physician in 1 to 2 weeks for further evaluation. If any worsening pain, redness,, back pain to return back to ED. Scripts Hydrocodone/Acetaminophen (Hydrocodone-Acetamin 5-325 mg) 5 Mg-325 Mg Tablet 1 TAB PO Q4H PRN for PAIN-MODERATE (5-7), #8 TAB Prov: NGHIA GAINES 07/22/22 Work/School Note: Work Release Form Date Seen in the Emergency Department: July 22, 2022 Return to Work: July 25, 2022 ATTENDING PHYSICIAN NOTE: I was physically present as attending physician in the emergency department during the care of this patient, but I was not directly involved in the decision making or delivery of care for this patient. (BARBARA MENDIOLA MD) NGHIA GAINSE July 22, 2022 11:08 BARBARA MENDIOLA MD July 24, 2022 06:23
[2022-07-22] MEDS ORDERED: HYDROcodone/APAP 5 MG/325 MG (LORTAB) TAB PO ONE (11:15)
[2022-07-22 11:43] LABS: BASOPHILS % (AUTO) 0 % (0-10); EOSINOPHILS # (AUTO) 0.1 10^3/uL (0.0-0.3); EOSINOPHILS % (AUTO) 1 % (0-10); HEMATOCRIT 43 % (35-52); HEMOGLOBIN 14.4 g/dL (11.5-16.0); LYMPHOCYTES # (AUTO) 2.2 10^3/uL (1.0-4.0); LYMPHOCYTES % (AUTO) 32 % (12-44); MEAN CORPUSCULAR HEMOGLOBIN 30 pg (25-34); MEAN CORPUSCULAR HGB CONC 34 g/dL (32-36); MEAN CORPUSCULAR VOLUME 88 fL (80-99); MEAN PLATELET VOLUME 10.4 fL (9.0-12.2); MONOCYTES # (AUTO) 0.7 10^3/uL (0.0-1.0); MONOCYTES % (AUTO) 10 % (0-12); NEUTROPHILS % (AUTO) 57 % (42-75); PLATELET COUNT 260 10^3/uL (130-400)
[2022-07-22 11:57] LABS: ALBUMIN 4.2 GM/DL (3.2-4.5)
[2022-07-22 11:59] LABS: CALCIUM 9.4 MG/DL (8.5-10.1)
[2022-07-22 12:00] LABS: TOTAL PROTEIN 8.5 GM/DL (6.4-8.2)
[2022-07-22 12:02] LABS: BILIRUBIN,TOTAL 1.1 MG/DL (0.1-1.0)
[2022-07-22 12:04] LABS: CREATININE SERUM 0.83 MG/DL (0.60-1.30)
--- NOTE | 2022-07-22 12:05 | Diagnostic Imaging Report ---
PROCEDURE: US left lower extremity venous. TECHNIQUE: Multiple real-time grayscale images were obtained over the left lower extremity in various projections. Additional duplex Doppler and color Doppler images were also obtained. INDICATION: Left leg pain. There is no evidence of left lower extremity DVT. Left lower extremity deep venous system shows normal compressibility with normal response to augmentation and Valsalva. No fluid collection or mass is detected. IMPRESSION: No evidence of left lower extremity DVT. Dictated by: Dictated on workstation # [id number]
[2022-07-22] MEDS ORDERED: ACHD5005 PO (12:38)
[2022-07-22 13:25] VITALS: BP 118/76
== END 2022-07-22 13:25 | disposition home or self-care (01) ==
LOC: ER 09:13 → EDUNIT# 09:58 → ER 13:25
DX: I87.2 Venous insufficiency (chronic) (peripheral) (principal); I83.92 Asymptomatic varicose veins of left lower extremity; E11.9 Type 2 diabetes mellitus without complications; Z79.4 Long term (current) use of insulin
CPT/HCPCS: 36415; 80053; 85025

== ENCOUNTER → 2023-01-04 | Outpatient (CLI) | payer OTHER ==
[~2023-01-04] MED LIST changes: +ACHD5005 PO
[2023-01-04 08:27] LABS: HEMATOCRIT 42 % (35-52); HEMOGLOBIN 13.7 g/dL (11.5-16.0); MEAN CORPUSCULAR HEMOGLOBIN 30 pg (25-34); MEAN CORPUSCULAR HGB CONC 33 g/dL (32-36); MEAN CORPUSCULAR VOLUME 92 fL (80-99); MEAN PLATELET VOLUME 10.2 fL (9.0-12.2); PLATELET COUNT 202 10^3/uL (130-400); WHITE BLOOD COUNT 5.5 10^3/uL (4.3-11.0)
[2023-01-04 08:36] LABS: ALBUMIN 3.5 GM/DL (3.2-4.5)
[2023-01-04 08:37] LABS: POTASSIUM 4.2 MMOL/L (3.6-5.0)
[2023-01-04 08:38] LABS: CALCIUM 8.7 MG/DL (8.5-10.1)
[2023-01-04 08:41] LABS: BILIRUBIN,TOTAL 0.6 MG/DL (0.1-1.0)
[2023-01-04 08:43] LABS: CREATININE SERUM 0.86 MG/DL (0.60-1.30)
--- NOTE | 2023-01-04 09:39 | Diagnostic Imaging Report ---
CLINICAL INDICATION: Comparison: None Procedure: Ultrasound venous ultrasound of the left lower extremity with multiple real-time grayscale images were obtained in various projections. Additional spectral analysis and color Doppler duple images were also obtained. Findings: There is occlusive thrombus within the left greater saphenous vein from the mid calf extending proximally. The left greater saphenous vein thrombus extends 1.75 cm from the left common femoral vein junction region. There is no extension into the left common femoral vein. There are no other areas of intravascular thrombus seen on this exam. Remainder of the vessels demonstrate spontaneous Doppler flow with augmentation. There is no fluid collection in the popliteal fossa region. IMPRESSION: 1: There is occlusive thrombus involving the left greater saphenous vein which extends from the mid calf region proximally. Intravascular thrombus of the left greater saphenous vein extends to roughly 1.75 cm from the left common femoral vein junction region. There is no extension of thrombus into the left common femoral vein. 2: There is no other intravascular thrombus seen. I agree with preliminary results, results of which were called to Dr. Gay and Chrissy Stark APRN via the telephone at the time of this exam by the electroneurodiagnostic technologist. Dictated by: Dictated on workstation # [id number]
== END ==
LOC: RAD 08:03
PROVIDERS: ATTEND Nurse Practitioner Family
DX: I82.812 Embolism and thrombosis of superficial veins of left lower extremity (principal); I10 Essential (primary) hypertension; E11.9 Type 2 diabetes mellitus without complications
CPT/HCPCS: 36415; 80053; 83036; 84443; 85027; 85379